=== PATIENT | female | born 1980 | race African-American/Black ===

== ENCOUNTER 2016-06-18 11:53 | Emergency (ER) | payer BC ==
[2016-06-18 11:33] LABS: URINE SOURCE CLEAN CATCH
[2016-06-18 11:36] LABS: MICRO INDICATED? YES; URINE APPEARANCE SL HAZY; URINE BILIRUBIN NEG (NEG); URINE BLOOD 1+ (NEG); URINE COLOR YELLOW; URINE GLUCOSE NEG (NORM); URINE KETONE NEG (NEG); URINE LEUKOCYTE ESTERASE TRACE (NEG); URINE NITRATE NEG (NEG); URINE PH 5.5 (5-8); URINE PROTEIN NEG (NEG); URINE UROBILINOGEN 0.2 MG/DL (NORM)
[2016-06-18 12:01] LABS: CULTURE INDICATED? YES; URINE BACTERIA 3+ (NEG); URINE SQUAMOUS EPITHELIAL CELL MODERATE /[HPF]; URINE WBC 50-100 /[HPF] (0-5)
== END 2016-06-18 11:55 | disposition home or self-care (01) ==
LOC: SED 11:53
PROVIDERS: Emergency Medicine
DX: N93.8 Other specified abnormal uterine and vaginal bleeding (principal); R03.0 Elevated blood-pressure reading, without diagnosis of hypertension; F17.210 Nicotine dependence, cigarettes, uncomplicated
CPT/HCPCS: 81003; 84703; 87077; 87086; 87186; 99283